=== PATIENT | male | born 1970 | race Caucasian/White ===

== ENCOUNTER 2018-05-22 20:58 | Emergency (ER) | payer OTHER ==
[~2018-05-22] VITALS: Ht 182.9 cm; Wt 89.7 kg
[~2018-05-22 20:58] MED LIST: ALPRAZOLAM0.25 M2 PO; ATRIPLA TABLET1 EACH; AZITHROMYCIN250 MG PO; CHOLESTYRAMINE P4 GM PO; FLEXERIL10 MG PO; FLOMAX0.4 MG PO; LISINOPRIL5 MG PO; PERCOCET 5/31 TABLET PO; PRAVACHOL20 MG PO; PROMETHAZINE HC25 M1 PO; ULTRAM50 MG PO
[2018-05-22 21:19] LABS: HEMATOCRIT 46.7 % (38.0-50.0); HEMOGLOBIN 15.8 G/DL (12.5-16.6); MCH 29.8 PG (29.0-34.0); MCHC 33.8 G/DL (30.0-36.0); MCV 88.1 FL (86-99); PLATELET COUNT 274 K/uL (156-360); RBC DIS.WIDTH-CV 12.6 % (11.8-14.6); RBC DIS.WIDTH-SD 40.6 % (39-53); WHITE BLOOD COUNT 9.4 K/uL (4.1-10.2)
[2018-05-22 21:28] LABS: CHLORIDE 105 mEq/L (99-109); SODIUM 137 mEq/L (136-147)
[2018-05-22 21:30] LABS: GLUCOSE 153 mg/dL (70-99)
[2018-05-22 21:34] LABS: CREATININE 1.3 mg/dL (0.6-1.3); GFR ESTIMATE (CALCULATED) > 59 mL/min/ (58.99-99999)
[2018-05-22 21:35] LABS: UREA NITROGEN (BUN) 17 mg/dL (9-23)
[2018-05-22 21:37] LABS: APPEARANCE CLEAR ((CLEAR)); BILIRUBIN NEGATIVE; BLOOD LARGE; COLOR YELLOW ((YELLOW)); GLUCOSE (STRIP) NEGATIVE; KETONES NEGATIVE; LEUKOCYTES NEGATIVE; NITRITE NEGATIVE; PROTEIN (STRIP) NEGATIVE; SPECIFIC GRAVITY 1.025 (1.000-1.030); UROBILINOGEN 0.2 MG/DL (0.2-1.0)
[2018-05-22 21:51] LABS: BACTERIA NONE SEEN /HPF; EPITHELIAL CELLS RARE /HPF; MUCUS TRACE /LPF; RED BLOOD CELLS TNTC /HPF (0-5); UCUL ADDED? YES; WHITE BLOOD CELLS 0-5 /HPF (0-5)
[2018-05-23] MEDS ORDERED: PERCOCET 5/31 TABLET PO (00:02)
[2018-05-23] MEDS ORDERED: CIPRO500 MG PO (00:02)
[2018-05-23 00:23] VITALS: BP 149/86
[2018-05-26] MEDS ORDERED: PRINIVIL5 MG PO (11:09)
[2018-05-26] MEDS ORDERED: FLOMAX0.4 MG PO (11:09)
[2018-05-26] MEDS ORDERED: DESCOVY 200-251 EACH PO (11:10)
[2018-05-26] MEDS ORDERED: SUSTIVA600 MG PO (11:11)
[2018-05-26] MEDS ORDERED: ZOFRAN8 MG PO (11:15)
[2018-05-26] MEDS ORDERED: VITAMIN D31000 UNIT PO (11:16)
[2018-05-26] MEDS ORDERED: CENTRUM SILVER1 EAC1 PO (11:16)
[2018-05-26] MEDS ORDERED: BENADRYL25 MG PO (11:17)
== END 2018-05-23 00:23 | disposition home or self-care (01) ==
LOC: EME 20:58
DX: N13.2 Hydronephrosis with renal and ureteral calculous obstruction (principal); Z87.442 Personal history of urinary calculi; I10 Essential (primary) hypertension; Z21 Asymptomatic human immunodeficiency virus [HIV] infection status; Z88.0 Allergy status to penicillin; F41.9 Anxiety disorder, unspecified; F32.9 Major depressive disorder, single episode, unspecified; Z87.891 Personal history of nicotine dependence
CPT/HCPCS: 74176; 80048; 81003; 85027; 87086; 99281; 99285; J1885; J2405; J7030

== ENCOUNTER 2018-05-27 08:16 | Inpatient (IN) | payer OTHER ==
[~2018-05-27] VITALS: Ht 182.9 cm; Wt 89.0 kg
[~2018-05-27 08:16] MED LIST changes: +BENADRYL25 MG PO; +CENTRUM SILVER1 EAC1 PO; +CIPRO500 MG PO; +DESCOVY 200-251 EACH PO; +PRINIVIL5 MG PO; +SUSTIVA600 MG PO; +VITAMIN D31000 UNIT PO; +ZOFRAN8 MG PO
[2018-05-27 08:44] LABS: HEMATOCRIT 46.2 % (38.0-50.0); HEMOGLOBIN 16.4 G/DL (12.5-16.6); MCH 30.1 PG (29.0-34.0); MCHC 35.5 G/DL (30.0-36.0); MCV 84.8 FL (86-99); PLATELET COUNT 281 K/uL (156-360); RBC DIS.WIDTH-CV 12.4 % (11.8-14.6); RED BLOOD COUNT 5.45 M/uL (4.00-5.50); WHITE BLOOD COUNT 11.9 K/uL (4.1-10.2)
[2018-05-27 09:02] LABS: CHLORIDE 106 mEq/L (99-109); SODIUM 135 mEq/L (136-147)
[2018-05-27 09:03] LABS: GLUCOSE 133 mg/dL (70-99)
[2018-05-27 09:07] LABS: CREATININE 1.2 mg/dL (0.6-1.3); GFR ESTIMATE (CALCULATED) > 59 mL/min/ (58.99-99999)
[2018-05-27 09:08] LABS: UREA NITROGEN (BUN) 17 mg/dL (9-23)
[2018-05-27 09:58] LABS: APPEARANCE CLOUDY ((CLEAR)); BILIRUBIN NEGATIVE; BLOOD LARGE; COLOR AMBER ((YELLOW)); GLUCOSE (STRIP) NEGATIVE; KETONES 5; LEUKOCYTES NEGATIVE; NITRITE NEGATIVE; PROTEIN (STRIP) 30; SPECIFIC GRAVITY 1.021 (1.000-1.030); UROBILINOGEN 0.2 MG/DL (0.2-1.0)
[2018-05-27 10:11] LABS: EPITHELIAL CELLS 1+ /HPF; MUCUS 1+ /LPF; RED BLOOD CELLS 40-50 /HPF (0-5); WHITE BLOOD CELLS 0-5 /HPF (0-5)
[2018-05-27 10:12] LABS: BACTERIA RARE /HPF; CALCIUM OXALATE CRYSTALS RARE /HPF
[2018-05-27] MEDS ORDERED: CIPRO500 MG PO (10:29)
[2018-05-27 14:30] VITALS: BP 130/83
[2018-05-27 20:21] VITALS: BP 122/74
[2018-05-27 23:01] VITALS: BP 134/87
[2018-05-28 05:25] VITALS: BP 119/81
[2018-05-28 05:44] LABS: HEMATOCRIT 43.9 % (38.0-50.0); HEMOGLOBIN 14.6 G/DL (12.5-16.6); MCH 29.5 PG (29.0-34.0); MCHC 33.3 G/DL (30.0-36.0); MCV 88.7 FL (86-99); PLATELET COUNT 246 K/uL (156-360); RBC DIS.WIDTH-SD 42.3 % (39-53); RED BLOOD COUNT 4.95 M/uL (4.00-5.50); WHITE BLOOD COUNT 6.6 K/uL (4.1-10.2)
[2018-05-28 06:31] LABS: CHLORIDE 107 MEQ/L (99-109); CREATININE 1.5 MG/DL (0.6-1.3); GFR ESTIMATE (CALCULATED) 53 mL/min/ (58.99-99999); GLUCOSE 101 mg/dL (70-99); POTASSIUM 4.5 MEQ/L (3.7-5.4); SODIUM 140 MEQ/L (136-147); UREA NITROGEN (BUN) 19 mg/dL (9-23)
[2018-05-28 07:19] VITALS: BP 126/79
[2018-05-28 11:24] VITALS: BP 128/84
[2018-05-28 14:25] VITALS: BP 136/83
[2018-05-28 15:02] VITALS: BP 128/60
[2018-05-29 00:46] VITALS: BP 130/81
[2018-05-29 06:55] VITALS: BP 127/74
== END 2018-05-29 13:31 | disposition home or self-care (01) | DRG 694 ==
LOC: EME 08:16 → 5EAST 11:54 → EDOF 11:54 → ENRESERV 11:56 → 5EAST 12:37
PROVIDERS: Hospitalist; Nurse Practitioner Family
PROC: 0TF78ZZ Fragmentation in Left Ureter, Via Natural or Artificial Opening Endoscopic (ICD-10-PCS; principal; 2018-05-28)
PROC: 0T778DZ Dilation of Left Ureter with Intraluminal Device, Via Natural or Artificial Opening Endoscopic (ICD-10-PCS; principal; 2018-05-28)
DX: N13.2 Hydronephrosis with renal and ureteral calculous obstruction (principal); E86.0 Dehydration; R00.0 Tachycardia, unspecified; I10 Essential (primary) hypertension; N40.0 Benign prostatic hyperplasia without lower urinary tract symptoms; F32.9 Major depressive disorder, single episode, unspecified; F41.9 Anxiety disorder, unspecified; Z21 Asymptomatic human immunodeficiency virus [HIV] infection status; Z87.891 Personal history of nicotine dependence
CPT/HCPCS: 36415; 74018; 76000; 80048; 81003; 85027; 93005; 94799; 99281; 99285; C2625; J0744; J1100; J1170; J1644; J1885; J2270; J2405; J3010; J7030